=== PATIENT | female | born 1985 ===

== ENCOUNTER 2024-08-19 14:02 | Outpatient (CLI) | payer OTHER, SELFPAY ==
--- NOTE | 2024-08-19 14:00 | RT.EKG_ITS ---
APPROVED REPORT Exam: Resting ECG Reason for Exam: high risk medication use Patient Location: O HR:57 bpm ECG Measurements Heart Rate 57 AXIS SC 181 P 68 QRSd 94 QRS 52 QT 475 T 53 QTc 463 Conclusion Sinus rhythm...normal P axis, V-rate 50- 99 Normal Electrocardiogram
== END 2024-08-19 14:03 | disposition home or self-care (01) ==
PROVIDERS: Visit Provider Family Medicine
DX: Z51.81 Encounter for therapeutic drug level monitoring (principal)
CPT/HCPCS: 93005; 93010